=== PATIENT | female | born 1945 | race Caucasian/White ===

== ENCOUNTER 2022-06-23 14:51 | Inpatient (IN) | payer MEDICARE, OTHER ==
[~2022-06-23] VITALS: Ht 157.5 cm; Wt 100.2 kg
--- NOTE | 2022-06-23 15:24 | NUR ---
Dr Yuan seen and examined the Pt.
[2022-06-23] MEDS ORDERED: FAMOTIDINE. 20 MG/2 ML VIAL IV ONE ×2 (15:30→16:14)
[2022-06-23 16:12] LABS: HEMATOCRIT 35.9 % (31.2-41.9); MEAN CORPUSCULAR HEMOGLOBIN 25.9 uug (24.7-32.8); MEAN CORPUSCULAR VOLUME 80.8 fL (75.5-95.3); PLATELET COUNT (AUTO) 292 K/uL (179-408)
[2022-06-23 16:19] LABS: CARBON DIOXIDE 27 mmol/L (21-32); CHLORIDE 104 mmol/L (98-107); CREATININE 1.5 mg/dL (0.6-1.3); GLUCOSE 125 mg/dL (74-106); UREA NITROGEN, BLOOD 14 mg/dL (7-18)
[2022-06-23 16:27] LABS: ALANINE AMINOTRANSFERASE 16 U/L (14-59); ALKALINE PHOSPHATASE 78 U/L (50-136); ASPARTATE AMINOTRANSFERASE 15 U/L (15-37); BILIRUBIN,DIRECT 0.1 mg/dL (0.0-0.2); BILIRUBIN,TOTAL 0.3 mg/dL (0.2-1.0); LIPASE 62 U/L (73-393); TOTAL PROTEIN, SERUM 7.2 g/dL (6.4-8.2)
[2022-06-23] MEDS ORDERED: LORAZEPAM 0.5 MG TABLET PO ONE (16:45)
[2022-06-23] MEDS ORDERED: BUSP10TA3 PO (17:13)
[2022-06-23] MEDS ORDERED: MELA3TAB41 PO (17:13)
[2022-06-23] MEDS ORDERED: DOCU100C36 PO (17:13)
[2022-06-23] MEDS ORDERED: TEMA7.5C2 PO (17:13)
[2022-06-23] MEDS ORDERED: CLOT15CR27 TP (17:13)
[2022-06-23] MEDS ORDERED: PSYL3.4P6 PO (17:13)
[2022-06-23] MEDS ORDERED: ONDA-104 PO (17:13)
[2022-06-23] MEDS ORDERED: SIME80TA15 PO (17:13)
[2022-06-23] MEDS ORDERED: HYDR-501 PO (17:13)
[2022-06-23] MEDS ORDERED: POLY17PO4 PO (17:13)
[2022-06-23] MEDS ORDERED: PANT40TA49 PO (17:13)
[2022-06-23] MEDS ORDERED: LUBI24CA5 PO (17:13)
[2022-06-23] MEDS ORDERED: BISA10SU61 RC (17:13)
[2022-06-23] MEDS ORDERED: OXYC-128 PO (17:13)
[2022-06-23] MEDS ORDERED: MAGN400O6 PO (17:13)
[2022-06-23] MEDS ORDERED: LEVO50TA PO (17:13)
[2022-06-23] MEDS ORDERED: GABA-532 PO (17:13)
[2022-06-23] MEDS ORDERED: NA P133E RC (17:13)
[2022-06-23] MEDS ORDERED: CARI350T (17:13)
[2022-06-23] MEDS ORDERED: DIPH25TA62 PO (17:13)
[2022-06-23] MEDS ORDERED: AMLO5TAB4 PO (17:13)
[2022-06-23] MEDS ORDERED: ACET-2154 PO (17:13)
[2022-06-23] MEDS ORDERED: VITAMIN D3 PO (17:13)
[2022-06-23] MEDS ORDERED: SENN-261 PO (17:13)
[2022-06-23] MEDS ORDERED: QUET300T2 PO (17:13)
[2022-06-23] MEDS ORDERED: QUET100T PO (17:13)
[2022-06-23] MEDS ORDERED: LORA-259 PO (17:13)
[2022-06-23] MEDS ORDERED: BISM525O14 PO (17:13)
[2022-06-23] MEDS ORDERED: LORAZEPAM 1 MG TABLET ONE (17:18)
--- NOTE | 2022-06-23 17:25 | NUR ---
Placed a call to Beena Akers, PET rippler for Pt. Awating call back.
[2022-06-23 17:35] LABS: ACETAMINOPHEN < 2.0 ug/mL (10-30)
--- NOTE | 2022-06-23 18:20 | NUR ---
Spoke to Bianca PARKER, awaiting call back from Luciana Pastor.
--- NOTE | 2022-06-23 18:56 | NUR ---
Spoke to ELENA Patel, ETA 10 min.
[2022-06-23] MEDS ORDERED: ONDANSETRON 4 MG/2 ML VIAL ONE (19:19)
[2022-06-23] MEDS ORDERED: HYDROMORPHONE 1 MG/1 ML DISP.SYRIN ONE (19:19)
[2022-06-23] MEDS ORDERED: ONDANSETRON 4 MG/2 ML VIAL IV ONE (19:30)
[2022-06-23] MEDS ORDERED: HYDROMORPHONE 1 MG/1 ML DISP.SYRIN IV ONE (19:30)
--- NOTE | 2022-06-23 19:30 | NUR ---
Luciana Villatoro STOCK BLENDER at bedside for psych eval.
[2022-06-23] MEDS ORDERED: MAG HYDROX/AL HYDROX/SIMETH 30 ML LIQUID UDC ONE (19:54)
[2022-06-23] MEDS ORDERED: ONDANSETRON 4 MG/2 ML VIAL IM ONE (20:00)
[2022-06-23] MEDS ORDERED: HYDROMORPHONE 1 MG/1 ML DISP.SYRIN IM ONE (20:00)
[2022-06-23] MEDS ORDERED: MAG HYDROX/AL HYDROX/SIMETH 30 ML LIQUID UDC PO ONE (21:00)
--- NOTE | 2022-06-23 21:27 | NUR ---
Report given to Destiny ELIZALDE [facility].
[2022-06-23] MEDS ORDERED: diphenhydrAMINE 50 MG CAPSULE ONE (21:40)
[2022-06-23] MEDS ORDERED: diphenhydrAMINE 50 MG/1 ML VIAL IV ONE (21:45)
[2022-06-23] MEDS ORDERED: diphenhydrAMINE 50 MG CAPSULE PO ONE (21:45)
[2022-06-23] MEDS ORDERED: MAGNESIUM HYDROXIDE 30 ML LIQUID UDC PO PRN (22:15)
[2022-06-23] MEDS ORDERED: CLONAZEPAM 0.5 MG TABLET PO PRN (22:15)
[2022-06-23 22:51] VITALS: BP 153/56
[2022-06-23] MEDS: ACETAMINOPHEN 325 MG TABLET PO PRN (23:56)
[2022-06-23] MEDS: TEMAZEPAM 7.5 MG CAPSULE PO PRN (23:56)
[2022-06-24] MEDS: MAG HYDROX/AL HYDROX/SIMETH 30 ML LIQUID UDC PO PRN (02:53)
--- NOTE | 2022-06-24 03:19 | NUR ---
Admission Note: Received 77 y/o female patient in the hallway brought in via ER staff on tremaine @ 2215 hours. Patient is on a 5150 hold. Per hold information, pt is gravely disabled. Patient resides at [facility]. Staff there stated she constantly complained of pain that wasn't there, is a med-seeker, and non-compliant with care. Pt has a history of hospitalization and was recently discharged form [facility]. Pt is dx with Schizophrenia, Anxiety, MDD. Upon face to face assessment patient is AOx2, yet has moments of delusion, is a hypochondriac, needy, attention seeking, and complained of non-specific/generalized pain. Pt is obese, non-ambulatory/bedfast, and incontinent. Patient was given advisement, patient's rights handbook, was explained the rules of the unit, and her personal belongings accounted for. She will be followed by psychiatrist Jose Luis and senior product development scientist Zac.
[2022-06-24] MEDS ORDERED: LORAZEPAM 2 MG/1 ML VIAL IM ONE (03:45)
[2022-06-24] MEDS ORDERED: OLANZAPINE 10 MG VIAL IM ONE (03:45)
[2022-06-24] MEDS ORDERED: OXYCODONE/APAP 5-325 MG TABLET PO ONE (04:00)
--- NOTE | 2022-06-24 04:35 | NUR ---
Gave pt Klonopin 0.5mg po prn for increased anxiety, and Temazepam 7.5mg for insomnia per pt request. Anxiety and insomnia wasn't corrected per reassessment.
--- NOTE | 2022-06-24 04:47 | NUR ---
Contacted Dr. Moore for medication reconciliation. Patient continued to complain of non-specific generalized pain in major joints, behind the neck, lower back, esophagus, lower legs, etc. Pt was yelling and restless in bed. Per MD Moore orders, Percocet 5-325mg was cleared for x1 now, and home meds. Although this medication was cleared to give, we held giving this d/t Zyprexa 5mg IM and Ativan 2mg IM order via MD Amaya.
--- NOTE | 2022-06-24 05:04 | NUR ---
Chemical restraints given per orders via MD Amaya. Zyprexa 5mg IM, and Ativan 2 mg IM. Injection was given into (R) buttocks. Pt tolerated procedure well. VS taken before and after injections. Educated pt on each medication. Pt verbalized understanding. Will continue to monitor.
[2022-06-24 07:30] VITALS: BP 121/59
[2022-06-24] MEDS: LORAZEPAM 1 MG TABLET PO PRN ×2 (10:10→22:57)
[2022-06-24] MEDS: ACETAMINOPHEN 325 MG TABLET PO PRN (10:11)
[2022-06-24] MEDS: busPIRone 10 MG TABLET PO SCH (12:23)
[2022-06-24] MEDS ORDERED: BISACODYL 10 MG SUPP.RECT RC PRN (13:30)
[2022-06-24] MEDS ORDERED: FLEET ENEMA 133 ML BOTTLE RC PRN (13:30)
[2022-06-24] MEDS ORDERED: BISMUTH SUBSALICYLATE 525 MG PO PRN (13:30)
[2022-06-24] MEDS ORDERED: MAGNESIUM HYDROXIDE 30 ML LIQUID UDC PO PRN (13:30)
[2022-06-24] MEDS ORDERED: ACETAMINOPHEN 325 MG TABLET-SA PATIENTS-PAIN ONLY PO PRN ×2 (13:30)
--- NOTE | 2022-06-24 13:31 | NUR ---
Received patient in bed yelling and screaming at all time,, patient state that ' can you transfer me to other hospital i need to have endoscopy done".patient is confused and disorient poor insight and paranoia delusional ,PRN Ativan give as ordered not effected ,Aviva BORING MILL OPERATOR made aware no new order made.will continue close monitoring.
[2022-06-24 16:00] VITALS: BP 127/67
--- NOTE | 2022-06-24 16:02 | NUR ---
SW Initial Discharge Note: Pt currently resides at [facility] [address] [place] [address] ([phone]). SW will continue to be in contact with [facility] to ensure a safe and proper SW will continue to work with pt, family and MD to ensure a safe and proper discharge plan.
[2022-06-24] MEDS: DOCUSATE SODIUM 100 MG CAPSULE PO SCH (16:15)
[2022-06-24] MEDS: PANTOPRAZOLE SODIUM 40 MG TABLET.DR PO SCH (16:15)
[2022-06-24] MEDS: MIRALAX 17 GM POWD.PACK PO SCH (16:15)
[2022-06-24] MEDS: CARISOPRODOL 350 MG TABLET PO SCH (16:15)
[2022-06-24] MEDS: GABAPENTIN 100 MG CAPSULE PO SCH (16:16)
[2022-06-24] MEDS: PSYLLIUM SEED PACKET PO SCH (16:21)
[2022-06-24] MEDS ORDERED: LUBIPROSTONE PO SCH (17:00)
[2022-06-24] MEDS ORDERED: [UNRECOGNIZED DRUG - OTHER] PO SCH (17:00)
[2022-06-24 22:28] VITALS: BP 146/66
[2022-06-24] MEDS: SENNOSIDES 1 TABLET PO SCH (22:31)
[2022-06-24] MEDS: OXYCODONE/APAP 5-325 MG TABLET PO PRN (22:31)
[2022-06-24] MEDS: ESCITALOPRAM OXALATE 10 MG TABLET PO SCH (22:31)
[2022-06-24] MEDS: CLOTRIMAZOLE 1% CREAM 30 GM TUBE TP SCH ×2 (22:32→22:43)
[2022-06-25] MEDS: ACETAMINOPHEN 325 MG TABLET PO PRN ×2 (04:34→12:17)
[2022-06-25] MEDS: OXYCODONE/APAP 5-325 MG TABLET PO PRN ×3 (06:56→23:41)
[2022-06-25] MEDS: PANTOPRAZOLE SODIUM 40 MG TABLET.DR PO SCH ×2 (06:56→16:35)
[2022-06-25] MEDS: LEVOTHYROXINE SODIUM 50 MCG TABLET PO SCH (06:57)
[2022-06-25 07:35] VITALS: BP 135/55
[2022-06-25] MEDS: CYANOCOBALAMIN 1,000 MCG TABLET PO SCH (08:40)
[2022-06-25] MEDS: AMLODIPINE 5 MG TABLET PO SCH (08:41)
[2022-06-25] MEDS: MIRALAX 17 GM POWD.PACK PO SCH ×2 (08:41→16:36)
[2022-06-25] MEDS: busPIRone 10 MG TABLET PO SCH (08:41)
[2022-06-25] MEDS: CARISOPRODOL 350 MG TABLET PO SCH ×2 (08:41→16:35)
[2022-06-25] MEDS: GABAPENTIN 100 MG CAPSULE PO SCH ×3 (08:41→16:35)
[2022-06-25] MEDS: DOCUSATE SODIUM 100 MG CAPSULE PO SCH ×2 (08:41→16:36)
[2022-06-25] MEDS: PSYLLIUM SEED PACKET PO SCH ×2 (08:42→16:36)
[2022-06-25] MEDS: LORAZEPAM 1 MG TABLET PO PRN ×2 (09:21→22:05)
[2022-06-25] MEDS: MAG HYDROX/AL HYDROX/SIMETH 30 ML LIQUID UDC PO PRN ×2 (10:07→21:35)
[2022-06-25] MEDS ORDERED: LORAZEPAM 2 MG/1 ML VIAL IM ONE (14:15)
--- NOTE | 2022-06-25 15:02 | NUR ---
Patient became agitated, yelling, combative, striking out at staff, accusatory. Psychiatrist ordered Ativan 1 mg IM, three people were necessary to administer medication, no force needed. Active listening provided. Fall and safety precautions implemented.
--- NOTE | 2022-06-25 15:30 | NUR ---
Received patient sleeping in her room. Patient is A/O X 3 to person, place. Patient is demanding, needy, anxious and agitated most of time, yelling, screaming, attention seeker. Patient is fixated on pain medications. Patient states "I don't belong here. I need more care in the medical floor. I'm not a mental person. I'm just depressed." Patient is accusatory "I'll norm whoever put me here". Patient is given Mylanta 30 ml at 10:07 for upset stomach. Patient is given Tylenol 650 mg at 12:17 for headache and lower back pain. Patient is given Percocet 5-325 for generalized pain rated 10 on the scale of 1 to 10, will be monitored for effectiveness. Pt. requires more than minimal assistance with ADL, bed confined, incontinent. Active listening provided. Fall and safety precautions implemented.
[2022-06-25 16:22] VITALS: BP 116/58
[2022-06-25 20:58] VITALS: BP 105/60
[2022-06-25] MEDS: ESCITALOPRAM OXALATE 10 MG TABLET PO SCH (21:34)
[2022-06-25] MEDS: SENNOSIDES 1 TABLET PO SCH (21:34)
[2022-06-25] MEDS: TEMAZEPAM 7.5 MG CAPSULE PO PRN (21:35)
[2022-06-25] MEDS: CLOTRIMAZOLE 1% CREAM 30 GM TUBE TP SCH (21:35)
[2022-06-26] MEDS: LEVOTHYROXINE SODIUM 50 MCG TABLET PO SCH (06:56)
[2022-06-26] MEDS: PANTOPRAZOLE SODIUM 40 MG TABLET.DR PO SCH ×2 (06:56→17:00)
[2022-06-26] MEDS: OXYCODONE/APAP 5-325 MG TABLET PO PRN ×3 (06:57→23:04)
[2022-06-26 07:50] VITALS: BP 151/88
[2022-06-26] MEDS: busPIRone 10 MG TABLET PO SCH (08:27)
[2022-06-26] MEDS: CARISOPRODOL 350 MG TABLET PO SCH ×2 (08:29→17:00)
[2022-06-26] MEDS: CYANOCOBALAMIN 1,000 MCG TABLET PO SCH (08:29)
[2022-06-26] MEDS: GABAPENTIN 100 MG CAPSULE PO SCH ×3 (08:29→17:00)
[2022-06-26] MEDS: AMLODIPINE 5 MG TABLET PO SCH (08:29)
[2022-06-26] MEDS: DOCUSATE SODIUM 100 MG CAPSULE PO SCH ×2 (08:29→17:00)
[2022-06-26] MEDS: MIRALAX 17 GM POWD.PACK PO SCH ×2 (08:30→17:00)
[2022-06-26] MEDS: CLOTRIMAZOLE 1% CREAM 30 GM TUBE TP SCH ×2 (08:55→21:58)
[2022-06-26] MEDS: PSYLLIUM SEED PACKET PO SCH ×2 (09:00→17:00)
--- NOTE | 2022-06-26 10:00 | NUR ---
Received patient lying in her bed in her room. Received report from abran Hightower RN at 0900. Patient is A/O X 3 to person, place. Patient is demanding, needy, anxious and agitated, yelling for "nurse", attention seeking. Pt complaining of "more than 10/10" arthritis pain and requested percocet, but her last one was given at 0700. Gave pt Tylenol instead and Ativan per pt request and MD order. Showed pt how to use the phone to dial out. Pt spoke to her sister in law and her .
--- NOTE | 2022-06-26 10:05 | NUR ---
Pt refused Metamucil because she is having BMs.
[2022-06-26] MEDS: LORAZEPAM 1 MG TABLET PO PRN ×2 (10:39→23:04)
[2022-06-26] MEDS: ACETAMINOPHEN 325 MG TABLET PO PRN (10:39)
--- NOTE | 2022-06-26 12:29 | NUR ---
Spoke with Italo from pharmacy re a home med for this pt called Amitiza for constipation. Pt states that she doesn't use it and doesn't need it, that she uses miralax for her constipation. I let Italo know.
--- NOTE | 2022-06-26 15:42 | NUR ---
Pt able to transfer to isabela chair with 2 person assist. Pt rolled to the activity room to watch tv. Pt states "I've been in bed for 3 years."
[2022-06-26] MEDS ORDERED: PROTEIN SUPPLEMENT (PROSTAT) 30 ML LIQUID PO SCH (16:00)
[2022-06-26] MEDS: MAG HYDROX/AL HYDROX/SIMETH 30 ML LIQUID UDC PO PRN ×2 (16:07→23:03)
[2022-06-26 16:14] VITALS: BP 127/54
[2022-06-26] MEDS: GLUCERNA SHAKE 237 ML CAN PO SCH (18:00)
--- NOTE | 2022-06-26 19:22 | NUR ---
Endorsed pt to night nurseKatja. Pt in isabela chair in activity room, watching tv.
[2022-06-26] MEDS: TEMAZEPAM 7.5 MG CAPSULE PO PRN (21:58)
[2022-06-26] MEDS: SENNOSIDES 1 TABLET PO SCH (21:58)
[2022-06-26] MEDS: ESCITALOPRAM OXALATE 10 MG TABLET PO SCH (21:58)
--- NOTE | 2022-06-27 02:16 | NUR ---
SHIFT NOTE; RECEIVED NOTE FROM AM NURSE ISAAC PT IS ALERT AND ORIENTED X3 PT WAS OUT BED IN TV ROOM WATCHING TV. PT REQUESTED TO BE RETURNED TO BED PUSHED BROOKS CHAIR IN PATIENT ROOM. PT ASSISTED WITH STANDING AND AFTERWARDS PT GOT BACK IN BED WITH HEALTHCARE PROFESSIONALS OBSERVING PT NO SIGNS OF FALL NOTED..PT CLEAN AND DRY CREAM APPLIED ORDERED. PT TOLERATED WELL NO SIGNS OF DISTRESS NOTED. PT GIVEN EVENING MEDICATION ORDERED ALONG WITH PRN PAIN MEDICATION NO SIGNS OF ADVERSE REACTION NOTED. PT MONITORED AFTER AN HOUR SLEEPING BUT EASY TO AROUSED. WILL ENDORSE TO AM NURSE AND CONTINUE TO MONITOR ORDERED OBSERVE FOR FALLS AND SAFETY
[2022-06-27] MEDS: PANTOPRAZOLE SODIUM 40 MG TABLET.DR PO SCH ×2 (07:26→16:01)
[2022-06-27] MEDS: LEVOTHYROXINE SODIUM 50 MCG TABLET PO SCH (07:26)
[2022-06-27 07:45] VITALS: BP 143/63
[2022-06-27] MEDS: GLUCERNA SHAKE 237 ML CAN PO SCH ×3 (08:00→16:02)
[2022-06-27] MEDS: GABAPENTIN 100 MG CAPSULE PO SCH ×3 (08:45→16:01)
[2022-06-27] MEDS: busPIRone 10 MG TABLET PO SCH (08:46)
[2022-06-27] MEDS: LORAZEPAM 1 MG TABLET PO PRN (08:46)
[2022-06-27] MEDS: CYANOCOBALAMIN 1,000 MCG TABLET PO SCH (08:46)
[2022-06-27] MEDS: DOCUSATE SODIUM 100 MG CAPSULE PO SCH ×2 (08:46→16:01)
[2022-06-27] MEDS: CARISOPRODOL 350 MG TABLET PO SCH ×2 (08:46→16:01)
[2022-06-27] MEDS: OXYCODONE/APAP 5-325 MG TABLET PO PRN ×2 (08:46→22:31)
[2022-06-27] MEDS: CLOTRIMAZOLE 1% CREAM 30 GM TUBE TP SCH ×2 (08:47→21:00)
[2022-06-27] MEDS: AMLODIPINE 5 MG TABLET PO SCH (08:47)
[2022-06-27] MEDS: PSYLLIUM SEED PACKET PO SCH ×2 (08:47→16:02)
[2022-06-27] MEDS: MIRALAX 17 GM POWD.PACK PO SCH ×2 (08:47→16:03)
[2022-06-27] MEDS ORDERED: LORAZEPAM 1 MG TABLET PO PRN (10:15)
[2022-06-27] MEDS: MAG HYDROX/AL HYDROX/SIMETH 30 ML LIQUID UDC PO PRN ×2 (11:43→20:59)
[2022-06-27] MEDS: ACETAMINOPHEN 325 MG TABLET PO PRN (12:32)
--- NOTE | 2022-06-27 14:56 | NUR ---
GPS: Nursing Notes: Mood Disturbance: Depression: Patient is awake and responding to her name, depressed mood and anxious affect, poor impulse control, overly demanding at times, needy, attention seeking, unable to formulate a viable plan for self care, needs assistance with ADL's, unable to ambulate, unkempt appearance, gets easily irritable when redirected, continue to monitor for safety, continue with treatment plan.
[2022-06-27] MEDS: ONDANSETRON HCL 4 MG TABLET PO PRN (15:14)
[2022-06-27] MEDS: BISMUTH SUBSALICYLATE 262 MG/15 ML UDC PO PRN (15:15)
[2022-06-27] MEDS: LORAZEPAM 0.5 MG TABLET PO PRN ×2 (15:20→21:27)
[2022-06-27 15:48] VITALS: BP 143/60
[2022-06-27] MEDS: SENNOSIDES 1 TABLET PO SCH (21:00)
--- NOTE | 2022-06-27 21:00 | NUR ---
Patient is still needy and attention seeking. Medication Seeker. Must set boundaries. Re-eduation needed per shift. Pt complained of stomach upset. Gave Mag-Al Plus for excess antiacid relief.
[2022-06-27 21:01] VITALS: BP 150/66
[2022-06-27] MEDS: ESCITALOPRAM OXALATE 10 MG TABLET PO SCH (21:27)
--- NOTE | 2022-06-27 21:29 | NUR ---
Patient refused Senokot x1 tablet @ 2100 hours. After re-educating on the importance f the drug, pt stated she is having loose BM, and requested to hold from taking it.
[2022-06-27] MEDS: TEMAZEPAM 7.5 MG CAPSULE PO PRN (22:30)
--- NOTE | 2022-06-27 22:32 | NUR ---
Patient stated she is having trouble sleeping at night d/t discomfort and pain. Stated her sleeping pill doesn't work. Gave Temazepam and Percocet for insomnia and pain management. Will continue to monitor.
[2022-06-28] MEDS: ACETAMINOPHEN 325 MG TABLET PO PRN ×2 (03:07→15:28)
[2022-06-28] MEDS: REMEDY ESSENTIAL ZINC PASTE 113 GM TOP PRN ×2 (04:57→10:57)
[2022-06-28] MEDS: BISMUTH SUBSALICYLATE 262 MG/15 ML UDC PO PRN ×3 (04:57→22:26)
--- NOTE | 2022-06-28 05:28 | NUR ---
Patient complained of generalized pain in various areas of her body 04/04. Patient denies being addicted to her pain medications and is defensive when being re-educated on the importance of being careful not to become drug dependant/reliant when it is not truly necessary. Patient is manipulative and medication and attention seeking. Patient requested for another Percocet and Ativan.
--- NOTE | 2022-06-28 05:32 | NUR ---
Gave patient [place] Bismuth for gastric upset and diarrhea management. Cleaned and changed patient's perineal area for loose BM and urine, three times this shift. Will continue to monitor.
[2022-06-28] MEDS: LORAZEPAM 0.5 MG TABLET PO PRN ×2 (05:34→13:25)
[2022-06-28] MEDS: OXYCODONE/APAP 5-325 MG TABLET PO PRN ×3 (05:36→22:12)
[2022-06-28] MEDS: PANTOPRAZOLE SODIUM 40 MG TABLET.DR PO SCH ×2 (05:36→18:06)
[2022-06-28] MEDS: LEVOTHYROXINE SODIUM 50 MCG TABLET PO SCH (05:36)
--- NOTE | 2022-06-28 05:47 | NUR ---
Patient is requesting a different medication for diarrhea mgt. Will notify day shift nurse during report.
[2022-06-28 08:07] VITALS: BP 133/61
[2022-06-28] MEDS: busPIRone 10 MG TABLET PO SCH (08:46)
[2022-06-28] MEDS: CARISOPRODOL 350 MG TABLET PO SCH ×2 (08:46→18:06)
[2022-06-28] MEDS: GABAPENTIN 100 MG CAPSULE PO SCH ×3 (08:46→18:06)
[2022-06-28] MEDS: DOCUSATE SODIUM 100 MG CAPSULE PO SCH ×2 (08:47→17:00)
[2022-06-28] MEDS: AMLODIPINE 5 MG TABLET PO SCH (08:47)
[2022-06-28] MEDS: CYANOCOBALAMIN 1,000 MCG TABLET PO SCH (08:47)
[2022-06-28] MEDS: GLUCERNA SHAKE 237 ML CAN PO SCH ×3 (08:47→17:00)
[2022-06-28] MEDS: MIRALAX 17 GM POWD.PACK PO SCH ×2 (08:48→17:00)
[2022-06-28] MEDS: CLOTRIMAZOLE 1% CREAM 30 GM TUBE TP SCH ×2 (08:48→21:00)
[2022-06-28] MEDS: PSYLLIUM SEED PACKET PO SCH ×2 (08:48→17:00)
--- NOTE | 2022-06-28 10:09 | NUR ---
Firearms Report: Deep Submergence Vehicle Crewmember completed and submitted a [employer] firearms report for 5150 grave disability certifications. A copy of report has been placed in patient chart.
--- NOTE | 2022-06-28 14:00 | NUR ---
GPS: Nursing Notes: Mood Disturbance: Depression: Patient is awake and responding to her name, compliant with her medications, argumentative, depressed mood and anxious affect, poor impulse control, overly demanding, needy, gets easily irritable when her demands are not met immediately, stated "I am going to norm Alfred Armenta.. I need a good reconciliation analyst..", unable to formulate a viable plan for self care, continue to monitor for safety, needs assistance with ADL's, continue with treatment plan.
[2022-06-28 15:20] VITALS: BP 174/81
[2022-06-28] MEDS: MAG HYDROX/AL HYDROX/SIMETH 30 ML LIQUID UDC PO PRN (15:28)
[2022-06-28 19:53] VITALS: BP 122/50
[2022-06-28] MEDS: SENNOSIDES 1 TABLET PO SCH (21:00)
[2022-06-28] MEDS: busPIRone 5 MG TABLET PO SCH (22:04)
[2022-06-28] MEDS: LORAZEPAM 1 MG TABLET PO PRN (22:04)
[2022-06-28] MEDS: ESCITALOPRAM OXALATE 10 MG TABLET PO SCH (22:05)
[2022-06-28] MEDS: TEMAZEPAM 7.5 MG CAPSULE PO PRN (22:05)
[2022-06-29] MEDS: PANTOPRAZOLE SODIUM 40 MG TABLET.DR PO SCH ×2 (06:05→17:50)
[2022-06-29] MEDS: LEVOTHYROXINE SODIUM 50 MCG TABLET PO SCH (06:05)
[2022-06-29] MEDS: OXYCODONE/APAP 5-325 MG TABLET PO PRN ×3 (06:06→20:00)
[2022-06-29] MEDS: LORAZEPAM 1 MG TABLET PO PRN ×2 (06:38→22:58)
--- NOTE | 2022-06-29 07:26 | NUR ---
GPS: SHIFT NOTE:RECEIVED PT IN THE DINING AREA WATCHING TV REQUESTED TO COME TO ROOM GO TO ROOM BY 2300; PT REQUESTED MEDICATION FOR PAIN AND UPSET STOMACH. NO MEDICATION FOR STOOL PT HAVING LOOSE STOOL. MEDICATION HELD. PT IS CALM AND COOPERATIVE. PT CHANGED TWICE DURING THE SHIFT ALSO HAS LOOSE STOOL. WILL ENDORSE TO AM NURSE.
[2022-06-29 07:30] VITALS: BP 120/57
[2022-06-29] MEDS: GLUCERNA SHAKE 237 ML CAN PO SCH ×3 (08:00→17:49)
[2022-06-29] MEDS: PSYLLIUM SEED PACKET PO SCH ×2 (09:00→17:00)
[2022-06-29] MEDS: MIRALAX 17 GM POWD.PACK PO SCH ×2 (09:00→17:00)
[2022-06-29] MEDS: DOCUSATE SODIUM 100 MG CAPSULE PO SCH ×2 (09:00→17:00)
[2022-06-29] MEDS: CYANOCOBALAMIN 1,000 MCG TABLET PO SCH (09:43)
[2022-06-29] MEDS: CARISOPRODOL 350 MG TABLET PO SCH ×2 (09:43→17:50)
[2022-06-29] MEDS: GABAPENTIN 100 MG CAPSULE PO SCH ×3 (09:43→17:49)
[2022-06-29] MEDS: busPIRone 5 MG TABLET PO SCH ×3 (09:43→17:49)
[2022-06-29] MEDS: AMLODIPINE 5 MG TABLET PO SCH (09:44)
[2022-06-29] MEDS: CLOTRIMAZOLE 1% CREAM 30 GM TUBE TP SCH ×2 (09:44→21:06)
[2022-06-29] MEDS: MAG HYDROX/AL HYDROX/SIMETH 30 ML LIQUID UDC PO PRN (13:49)
[2022-06-29] MEDS: SIMETHICONE 80 MG TAB.CHEW PO PRN (13:49)
[2022-06-29] MEDS: ACETAMINOPHEN 325 MG TABLET PO PRN (13:49)
--- NOTE | 2022-06-29 14:31 | NUR ---
GPS; SHIFT NOTE: PT IS STILL IN BED ATE LUNCH IN BED PT REQUEST TO COME OUT OF ROOM AND GO TO DINING AREA ASSISTED.PT IS STILL HAVING LOOSE STOOL. PT IS CALM AND COOPERATIVE LESS AGITATED. MEDICATION GIVEN FOR GAS AND OTHER MEDICATION GIVEN NO SIGNS OF ADVERSE REACTION FROM MEDICATION WILL CONTINUE TO MONITOR FOR FALLS AND SAFETY. WILL ENDORSE TO TO EVENING NURSE.
[2022-06-29 16:00] VITALS: BP 145/49
[2022-06-29 20:04] VITALS: BP 123/63
[2022-06-29] MEDS: SENNOSIDES 1 TABLET PO SCH (21:05)
[2022-06-29] MEDS: ESCITALOPRAM OXALATE 10 MG TABLET PO SCH (21:05)
[2022-06-30] MEDS: TEMAZEPAM 7.5 MG CAPSULE PO PRN (00:01)
[2022-06-30] MEDS: ACETAMINOPHEN 325 MG TABLET PO PRN (00:02)
--- NOTE | 2022-06-30 04:05 | NUR ---
RECEIVED PATIENT IN THE DAYROOM SITTING IN A LELO CHAIR. SHE IS NOTED A/O X 2, ABLE TO VERBALIZED HER FEELINGS. PATIENT IS EASILY IRRITABLE. SHE IS DEMANDING AT TIMES. SHE IS MEDICATION SEEKER. SHE HAS POOR INSIGHT INTO HIS ADMISSION TO [facility]HU AND POOR IMPULSE CONTROL. SHE STATED, "I SHOULD NOT BE HERE. I DON'T BELONG HERE. THIS IS A MISTAKE. i AM JUST SAD BECAUSE MY ONLY SON FEW MONTHS AGO. I DON'T WANT TO . I AM IN PAIN ALL THE TIME". PATIENT IS REASSURED AND REDIRECTED. SHE IS ABLE TO VERBALLY CFS ALL HER NEEDS ARE MET. PO FLUIDS AND SNACKS WERE GIVEN. SHE IS REASSURED FOR HER SAFETY. SAFETY AND FALL PRECAUTIONS ARE IN PLACE. V/S STABLE WILL CONTINUE TO MONITOR.
[2022-06-30] MEDS: OXYCODONE/APAP 5-325 MG TABLET PO PRN ×3 (05:26→23:52)
[2022-06-30] MEDS: PANTOPRAZOLE SODIUM 40 MG TABLET.DR PO SCH ×2 (06:36→16:37)
[2022-06-30] MEDS: LEVOTHYROXINE SODIUM 50 MCG TABLET PO SCH (06:36)
[2022-06-30] MEDS: LORAZEPAM 1 MG TABLET PO PRN ×2 (07:15→15:21)
[2022-06-30 07:30] VITALS: BP 145/56
[2022-06-30] MEDS: GLUCERNA SHAKE 237 ML CAN PO SCH ×3 (08:59→17:12)
[2022-06-30] MEDS: busPIRone 5 MG TABLET PO SCH ×3 (09:17→16:37)
[2022-06-30] MEDS: GABAPENTIN 100 MG CAPSULE PO SCH ×3 (09:17→16:37)
[2022-06-30] MEDS: DOCUSATE SODIUM 100 MG CAPSULE PO SCH ×2 (09:17→16:37)
[2022-06-30] MEDS: CARISOPRODOL 350 MG TABLET PO SCH ×2 (09:17→16:37)
[2022-06-30] MEDS: CYANOCOBALAMIN 1,000 MCG TABLET PO SCH (09:17)
[2022-06-30] MEDS: AMLODIPINE 5 MG TABLET PO SCH (09:17)
[2022-06-30] MEDS: CLOTRIMAZOLE 1% CREAM 30 GM TUBE TP SCH ×2 (09:18→20:58)
[2022-06-30] MEDS: MIRALAX 17 GM POWD.PACK PO SCH ×2 (09:18→16:38)
[2022-06-30] MEDS: PSYLLIUM SEED PACKET PO SCH ×2 (09:20→16:39)
--- NOTE | 2022-06-30 09:51 | NUR ---
Patient had court hearing, associate juvenile court judge Hallie decided giving 14 Day probable cause for DTS and GD.
[2022-06-30 16:00] VITALS: BP 150/54
--- NOTE | 2022-06-30 18:25 | NUR ---
0730-REC'D PATIENT IN BED, AWAKE, ALERT, ABLE TO VERBALIZE HER NEEDS. DENIES ANY PAIN. OFFERED ORAL FLUIDS JULIA. AND TAKEN WELL. WILL CONT. TO MONITOR. 0900-SCHEDULED/DUE MEDICATION ADMINISTERED WITH NO ASE, ORAL FLUIDS TAKEN WELL. 1500-PATIENT OOB, ON BROOKS-CHAIR PARTICIPATING IN PLANNED ACTIVITIES WITH OTHER PATIENTS IN THE UNIT AND STAFF. ASSIST NEEDED DURING SHIFT, NO LUCIAN, SEEN BY DISTANCE EDUCATION TEACHER CROW Guerrero WITH ORDERS FOR UA; PATIENT REFUSES TO GO BACK TO BED AND/OR TO BE STRAIGHT CATH TO OBTAIN URINE SAMPLE. GOOD PERINEAL CARE PROVIDED, JANIE ANY BLADDER DISCOMFORT, NO HEMATURIA, URINE ODORLESS. ALL NEEDS ATTENDED WELL AND MET, ENDORSED TO INCOMING NOC RELIEVING NURSE.
[2022-06-30 20:04] VITALS: BP 108/60
--- NOTE | 2022-06-30 20:30 | NUR ---
RECEIVED PATIENT IN THE DAYROOM SITTING IN A LELO CHAIR. SHE IS NOTED A/O X 2, ABLE TO VERBALIZED HER FEELINGS. SHE IS NOTED CALM AND PLEASANT UPON APPROACHED. SHE DENIED PAIN AT THIS TIME. SHE IS ABLE TO VERBALLY CFS. ALL HER NEEDS ARE MET. PO FLUIDS AND SNACKS WERE GIVEN. SHE IS REASSURED FOR HER SAFETY. SAFETY AND FALL PRECAUTIONS ARE IN PLACE. V/S STABLE WILL CONTINUE TO MONITOR.
[2022-06-30] MEDS: ESCITALOPRAM OXALATE 10 MG TABLET PO SCH (20:47)
[2022-06-30] MEDS: SENNOSIDES 1 TABLET PO SCH (20:52)
[2022-06-30] MEDS: ONDANSETRON HCL 4 MG TABLET PO PRN (22:37)
[2022-07-01] MEDS: TEMAZEPAM 7.5 MG CAPSULE PO PRN (00:31)
[2022-07-01] MEDS: LORAZEPAM 1 MG TABLET PO PRN ×2 (01:22→09:12)
[2022-07-01] MEDS: LEVOTHYROXINE SODIUM 50 MCG TABLET PO SCH (06:28)
[2022-07-01] MEDS: PANTOPRAZOLE SODIUM 40 MG TABLET.DR PO SCH ×2 (06:28→16:54)
[2022-07-01 07:19] LABS: MEAN CORPUSCULAR HEMOGLOBIN 26.1 uug (24.7-32.8); MEAN CORPUSCULAR VOLUME 81.3 fL (75.5-95.3); PLATELET COUNT (AUTO) 309 K/uL (179-408)
[2022-07-01 07:30] VITALS: BP 124/49
[2022-07-01 07:42] LABS: BILIRUBIN,TOTAL 0.3 mg/dL (0.2-1.0); CREATININE 1.3 mg/dL (0.6-1.3); MAGNESIUM 2.3 mg/dL (1.8-2.4); POTASSIUM 4.2 mmol/L (3.5-5.1); TOTAL PROTEIN, SERUM 7.5 g/dL (6.4-8.2)
[2022-07-01] MEDS: busPIRone 5 MG TABLET PO SCH ×3 (08:29→16:54)
[2022-07-01] MEDS: CARISOPRODOL 350 MG TABLET PO SCH ×2 (08:29→16:54)
[2022-07-01] MEDS: GABAPENTIN 100 MG CAPSULE PO SCH ×3 (08:29→16:54)
[2022-07-01] MEDS: CYANOCOBALAMIN 1,000 MCG TABLET PO SCH (08:29)
[2022-07-01] MEDS: DOCUSATE SODIUM 100 MG CAPSULE PO SCH ×2 (08:29→16:54)
[2022-07-01] MEDS: AMLODIPINE 5 MG TABLET PO SCH (08:30)
[2022-07-01] MEDS: MIRALAX 17 GM POWD.PACK PO SCH ×2 (08:30→16:54)
[2022-07-01] MEDS: GLUCERNA SHAKE 237 ML CAN PO SCH ×2 (08:33→16:55)
[2022-07-01] MEDS: PSYLLIUM SEED PACKET PO SCH ×2 (08:34→16:56)
[2022-07-01] MEDS: CLOTRIMAZOLE 1% CREAM 30 GM TUBE TP SCH ×2 (08:36→21:09)
[2022-07-01] MEDS: OXYCODONE/APAP 5-325 MG TABLET PO PRN ×2 (11:29→21:08)
--- NOTE | 2022-07-01 15:10 | NUR ---
Received Patient is awake and responding to her name, depressed mood and anxious affect, poor impulse control, overly demanding at times, needy, attention and med.seeking , get patient up to Louann-chair to Tv room, ,patient interaction well with other peers,will continue close monitoring.
[2022-07-01 16:48] VITALS: BP 144/53
[2022-07-01 20:33] VITALS: BP 142/61
[2022-07-01] MEDS: SENNOSIDES 1 TABLET PO SCH (21:07)
[2022-07-01] MEDS: ESCITALOPRAM OXALATE 10 MG TABLET PO SCH (21:07)
[2022-07-01] MEDS: DIAZEPAM 5 MG TABLET PO PRN (23:45)
[2022-07-01] MEDS: BISMUTH SUBSALICYLATE 262 MG/15 ML UDC PO PRN (23:45)
[2022-07-02] MEDS: TEMAZEPAM 7.5 MG CAPSULE PO PRN ×2 (00:35→22:45)
--- NOTE | 2022-07-02 03:38 | NUR ---
Pt remains "[id number]" with her prn medications, especially her pain meds. Re-education and establishing boundaries are needed in order to keep patient from having unnecessary anxious outbreaks. Attention seeking and needy at times, pt is overall compliant wit POC.
[2022-07-02] MEDS: PANTOPRAZOLE SODIUM 40 MG TABLET.DR PO SCH ×2 (06:39→16:40)
[2022-07-02] MEDS: LEVOTHYROXINE SODIUM 50 MCG TABLET PO SCH (06:39)
[2022-07-02] MEDS: OXYCODONE/APAP 5-325 MG TABLET PO PRN ×3 (06:41→22:44)
[2022-07-02 08:01] VITALS: BP 151/61
[2022-07-02] MEDS: GABAPENTIN 100 MG CAPSULE PO SCH ×3 (08:31→16:40)
[2022-07-02] MEDS: CARISOPRODOL 350 MG TABLET PO SCH ×2 (08:31→16:40)
[2022-07-02] MEDS: DOCUSATE SODIUM 100 MG CAPSULE PO SCH ×2 (08:31→16:40)
[2022-07-02] MEDS: CYANOCOBALAMIN 1,000 MCG TABLET PO SCH (08:31)
[2022-07-02] MEDS: AMLODIPINE 5 MG TABLET PO SCH (08:31)
[2022-07-02] MEDS: busPIRone 5 MG TABLET PO SCH ×3 (08:31→16:40)
[2022-07-02] MEDS: PSYLLIUM SEED PACKET PO SCH ×2 (08:32→16:40)
[2022-07-02] MEDS: MIRALAX 17 GM POWD.PACK PO SCH ×2 (08:32→16:40)
[2022-07-02] MEDS: GLUCERNA SHAKE 237 ML CAN PO SCH ×2 (08:32→16:40)
[2022-07-02] MEDS: CLOTRIMAZOLE 1% CREAM 30 GM TUBE TP SCH ×2 (08:32→20:32)
[2022-07-02] MEDS: BISMUTH SUBSALICYLATE 262 MG/15 ML UDC PO PRN (10:28)
[2022-07-02] MEDS: DIAZEPAM 5 MG TABLET PO PRN (11:50)
[2022-07-02] MEDS: ACETAMINOPHEN 325 MG TABLET PO PRN (11:50)
--- NOTE | 2022-07-02 13:20 | NUR ---
GPS: Nursing Notes: Mood Disturbance: Depression: Patient is awake and responding to her name, poor impulse control, overly demanding, constantly asking for PRN medications, depressed mood and anxious affect, stated that she is going to norm the facility where she came from, argumentative, needy, redirected during shift, unable to formulate a viable plan for self care, continue to monitor for safety, continue with treatment plan.
[2022-07-02] MEDS: MAG HYDROX/AL HYDROX/SIMETH 30 ML LIQUID UDC PO PRN (15:28)
[2022-07-02 16:10] VITALS: BP 158/56
[2022-07-02] MEDS: REMEDY ESSENTIAL ZINC PASTE 113 GM TOP PRN (16:32)
[2022-07-02 19:49] VITALS: BP 145/61
[2022-07-02] MEDS: SENNOSIDES 1 TABLET PO SCH (20:31)
[2022-07-02] MEDS: ESCITALOPRAM OXALATE 10 MG TABLET PO SCH (20:31)
[2022-07-02] MEDS: diphenhydrAMINE 25 MG CAP PO PRN (22:44)
[2022-07-03] MEDS: DIAZEPAM 5 MG TABLET PO PRN ×2 (01:00→14:23)
--- NOTE | 2022-07-03 03:59 | NUR ---
GPS NOTES: Patient received in [facility] [place], A&0x3. Patient at the beginning of the shift requests for benadryl d/t generalized body itchiness, patient also requesting for stronger pain medications as she is in "alot" of pain as the Percocet is not as effective to address her pain. Called [facility] MD, and was able to get an order for Benadryl, however, MD can't order more medication for her pain at this time and advise to refer in the AM MD as patient is already on PERCOCET. Informed patient of the MD's order. Patient then became upset and states "This DrKendras need to be sued, I have 4 blue leather sorter, this is not right, I'm in a lot of pain and they just let me suffer". Acknowledged patient feelings. Patient is not exhibiting any signs of severe pain, no facial grimacing noted, not crying or rubbing any affected area. Patient also unable to rate the pain when asked. Patient v/s are w/in acceptable parameters. No distress noted. Educated patient the pros and cons of taking too much pain narcotics. She is not accepting the informations at this time. Patient remains needy and making multiple demands to talk to the MD. Patient needs setting limits with her behavior. Patient also asked life underwriter to call Psychiatrist as she was told that she will be prescribed a Seroquel for sleep as the Restoril is not helping her sleep. Informed patient to talk the concern in the AM w/ MD. Patient was given Valium, Benadryl, Restoril and Percocet as prn during this shift. She is sleeping intermittently and asking for multiple requests when awake. All needs met and attended. Frequent rounding for safety in placed.
[2022-07-03] MEDS: BISMUTH SUBSALICYLATE 262 MG/15 ML UDC PO PRN ×2 (05:47→15:18)
[2022-07-03] MEDS: LEVOTHYROXINE SODIUM 50 MCG TABLET PO SCH (06:03)
[2022-07-03] MEDS: PANTOPRAZOLE SODIUM 40 MG TABLET.DR PO SCH ×2 (06:03→16:06)
[2022-07-03] MEDS: ACETAMINOPHEN 325 MG TABLET PO PRN ×3 (06:29→20:34)
[2022-07-03 08:02] VITALS: BP 150/73
[2022-07-03] MEDS: CARISOPRODOL 350 MG TABLET PO SCH ×2 (08:28→16:04)
[2022-07-03] MEDS: AMLODIPINE 5 MG TABLET PO SCH (08:28)
[2022-07-03] MEDS: OXYCODONE/APAP 5-325 MG TABLET PO PRN ×2 (08:28→16:03)
[2022-07-03] MEDS: busPIRone 5 MG TABLET PO SCH ×3 (08:28→16:03)
[2022-07-03] MEDS: PSYLLIUM SEED PACKET PO SCH ×2 (08:29→16:04)
[2022-07-03] MEDS: GABAPENTIN 100 MG CAPSULE PO SCH ×3 (08:29→16:03)
[2022-07-03] MEDS: CYANOCOBALAMIN 1,000 MCG TABLET PO SCH (08:29)
[2022-07-03] MEDS: GLUCERNA SHAKE 237 ML CAN PO SCH ×2 (08:29→16:04)
[2022-07-03] MEDS: DOCUSATE SODIUM 100 MG CAPSULE PO SCH ×2 (08:29→16:04)
[2022-07-03] MEDS: CLOTRIMAZOLE 1% CREAM 30 GM TUBE TP SCH ×2 (08:30→20:35)
[2022-07-03] MEDS: MIRALAX 17 GM POWD.PACK PO SCH ×2 (08:30→16:04)
[2022-07-03] MEDS ORDERED: ESCITALOPRAM OXALATE 10 MG TABLET PO SCH (09:00)
[2022-07-03] MEDS: diphenhydrAMINE 25 MG CAP PO PRN ×2 (14:23→20:34)
[2022-07-03] MEDS: REMEDY ESSENTIAL ZINC PASTE 113 GM TOP PRN ×2 (15:19→23:55)
--- NOTE | 2022-07-03 15:32 | NUR ---
GPS: Nursing Notes: Mood Disturbance: Depression: Patient is awake and responding to her name, poor impulse control, argumentative, overly demanding, needy, constantly asking for narcotics, and very single PRN medication that she can get, redirected and setting limits during shift, stated that she is going to norm the facility and the doctors, depressed mood and angry affect, unable to formulate a viable plan for self care, unkempt appearance, denies SI/HI, continue to monitor for safety, continue with treatment plan.
[2022-07-03 19:52] VITALS: BP 158/71
[2022-07-03] MEDS: SENNOSIDES 1 TABLET PO SCH (20:34)
[2022-07-04] MEDS: TEMAZEPAM 7.5 MG CAPSULE PO PRN (00:26)
[2022-07-04] MEDS: OXYCODONE/APAP 5-325 MG TABLET PO PRN ×3 (00:27→17:18)
[2022-07-04] MEDS: DIAZEPAM 5 MG TABLET PO PRN ×2 (01:57→20:59)
[2022-07-04] MEDS: BISMUTH SUBSALICYLATE 262 MG/15 ML UDC PO PRN ×3 (01:57→20:59)
[2022-07-04] MEDS: ACETAMINOPHEN 325 MG TABLET PO PRN ×3 (03:57→21:00)
[2022-07-04] MEDS: diphenhydrAMINE 25 MG CAP PO PRN ×3 (03:57→17:18)
--- NOTE | 2022-07-04 03:58 | NUR ---
Patient continues to be reliant on her prn medications round the clock. Even after re-education on the hazards of becoming addicted to these medications, patient requests to have stronger pain meds. Pt stated "I'm not contemplating suicide but, I can't go on living with all this pain." "I can't take it anymore." "These doctors don't listen to me." "I've gotten better medications at the other hospitals I've been to." Patient continues to complain of pain in her stomach, head, neck, shoulders, arms, legs, knees, feet. Pt continues to state that "the medications are strong enough." Pt continues to be needy, attention-seeking, and med-seeking.
[2022-07-04] MEDS: LEVOTHYROXINE SODIUM 50 MCG TABLET PO SCH (06:23)
[2022-07-04] MEDS: PANTOPRAZOLE SODIUM 40 MG TABLET.DR PO SCH ×2 (06:23→17:18)
[2022-07-04] MEDS: SIMETHICONE 80 MG TAB.CHEW PO PRN ×2 (06:23→20:59)
[2022-07-04 07:07] LABS: ALBUMIN 3.4 g/dL (2.9-4.4); ALPHA-1-GLOBULIN 0.3 g/dL (0.0-0.4); ALPHA-2-GLOBULIN 0.8 g/dL (0.4-1.0); BETA GLOBULIN 1.3 g/dL (0.7-1.3); GAMMA GLOBULIN 1.2 g/dL (0.4-1.8); GLOBULIN, TOTAL 3.5 g/dL (2.2-3.9); M-SPIKE Not Observed g/dL (Not Observed)
[2022-07-04 08:11] VITALS: BP 154/56
[2022-07-04] MEDS: GABAPENTIN 100 MG CAPSULE PO SCH ×3 (08:49→17:18)
[2022-07-04] MEDS: ESCITALOPRAM OXALATE 10 MG TABLET PO SCH (08:49)
[2022-07-04] MEDS: DOCUSATE SODIUM 100 MG CAPSULE PO SCH ×2 (08:50→17:00)
[2022-07-04] MEDS: GLUCERNA SHAKE 237 ML CAN PO SCH ×2 (08:50→17:00)
[2022-07-04] MEDS: CYANOCOBALAMIN 1,000 MCG TABLET PO SCH (08:50)
[2022-07-04] MEDS: PSYLLIUM SEED PACKET PO SCH ×2 (08:50→17:00)
[2022-07-04] MEDS: AMLODIPINE 5 MG TABLET PO SCH (08:50)
[2022-07-04] MEDS: CARISOPRODOL 350 MG TABLET PO SCH ×2 (08:50→17:18)
[2022-07-04] MEDS: busPIRone 5 MG TABLET PO SCH ×3 (08:50→17:18)
[2022-07-04] MEDS: MIRALAX 17 GM POWD.PACK PO SCH ×2 (08:51→17:00)
[2022-07-04] MEDS: CLOTRIMAZOLE 1% CREAM 30 GM TUBE TP SCH ×2 (08:51→21:25)
[2022-07-04] MEDS: REMEDY ESSENTIAL ZINC PASTE 113 GM TOP PRN ×2 (09:25→17:20)
--- NOTE | 2022-07-04 13:54 | NUR ---
GPS: Nursing Notes: Mood Disturbance: Depression: Patient is awake and responding to her name, poor impulse control, argumentative, constantly complaining about the doctors, informed of somatic complaints to Dr. Amaya and Geovanna Solis NP, no further orders were given, depressed mood and anxious affect, overly demanding, needy, disruptive at times by shouting, redirected during shift, setting limits, unable to formulate a viable plan for self care, continue to monitor for safety, continue with treatment plan.
[2022-07-04 15:55] VITALS: BP 118/82
[2022-07-04 19:37] VITALS: BP 167/71
[2022-07-04] MEDS: DULOXETINE 30 MG CAPSULE.DR PO SCH (20:59)
[2022-07-04] MEDS ORDERED: QUETIAPINE FUMARATE 25 MG TABLET PO SCH (21:00)
[2022-07-04] MEDS: SENNOSIDES 1 TABLET PO SCH (21:00)
--- NOTE | 2022-07-04 21:00 | NUR ---
Patient continues to be needy, drug and attention seeking.
[2022-07-05] MEDS: TEMAZEPAM 7.5 MG CAPSULE PO PRN ×2 (01:30→23:46)
[2022-07-05] MEDS: OXYCODONE/APAP 5-325 MG TABLET PO PRN ×3 (01:31→17:04)
[2022-07-05] MEDS: LEVOTHYROXINE SODIUM 50 MCG TABLET PO SCH (06:33)
[2022-07-05] MEDS: diphenhydrAMINE 25 MG CAP PO PRN ×3 (06:33→21:22)
[2022-07-05] MEDS: PANTOPRAZOLE SODIUM 40 MG TABLET.DR PO SCH ×2 (06:33→17:02)
[2022-07-05] MEDS: ACETAMINOPHEN 325 MG TABLET PO PRN ×3 (06:33→21:22)
[2022-07-05 08:07] VITALS: BP 112/52
[2022-07-05] MEDS: MIRALAX 17 GM POWD.PACK PO SCH ×2 (09:00→17:00)
[2022-07-05] MEDS: GLUCERNA SHAKE 237 ML CAN PO SCH ×2 (09:00→17:00)
[2022-07-05] MEDS: PSYLLIUM SEED PACKET PO SCH ×2 (09:00→17:00)
[2022-07-05] MEDS: DOCUSATE SODIUM 100 MG CAPSULE PO SCH ×2 (09:00→17:00)
[2022-07-05] MEDS: AMLODIPINE 5 MG TABLET PO SCH (09:09)
[2022-07-05] MEDS: ESCITALOPRAM OXALATE 10 MG TABLET PO SCH (09:09)
[2022-07-05] MEDS: CYANOCOBALAMIN 1,000 MCG TABLET PO SCH (09:09)
[2022-07-05] MEDS: busPIRone 5 MG TABLET PO SCH ×3 (09:09→17:03)
[2022-07-05] MEDS: CARISOPRODOL 350 MG TABLET PO SCH ×2 (09:09→17:02)
[2022-07-05] MEDS: GABAPENTIN 100 MG CAPSULE PO SCH ×3 (09:09→17:02)
[2022-07-05] MEDS: CLOTRIMAZOLE 1% CREAM 30 GM TUBE TP SCH ×2 (09:10→21:24)
[2022-07-05] MEDS: BISMUTH SUBSALICYLATE 262 MG/15 ML UDC PO PRN (11:22)
--- NOTE | 2022-07-05 11:33 | NUR ---
SW Family Contact: Pts only nascar pit crew person is her , who is also a resident at [facility] confirmed by the facility. The facility is aware of pt's current treatment update.
[2022-07-05] MEDS: MAG HYDROX/AL HYDROX/SIMETH 30 ML LIQUID UDC PO PRN ×2 (12:44→23:37)
[2022-07-05 16:00] VITALS: BP 133/50
--- NOTE | 2022-07-05 17:19 | NUR ---
GPS: Mood Disturbance: Depression: Patient is awake and responding to her name, poor impulse control, argumentative, gets easily irritable when redirected, depressed mood and anxious affect, needs assistance with nursing care, threatening to norm the facility and the doctors, loud and pressured speech at times, unable to formulate a viable plan for self care, needy, overly demanding, redirected during shift, continue to monitor for safety, continue with treatment plan.
[2022-07-05 20:11] VITALS: BP 168/64
[2022-07-05] MEDS: SENNOSIDES 1 TABLET PO SCH (21:00)
[2022-07-05] MEDS ORDERED: QUETIAPINE FUMARATE 25 MG TABLET PO SCH (21:00)
[2022-07-05] MEDS: DULOXETINE 30 MG CAPSULE.DR PO SCH (21:22)
[2022-07-05] MEDS: LORAZEPAM 1 MG TABLET PO PRN (21:22)
[2022-07-05] MEDS: SIMETHICONE 80 MG TAB.CHEW PO PRN (23:36)
[2022-07-06] MEDS: LORAZEPAM 1 MG TABLET PO PRN ×2 (06:47→13:44)
[2022-07-06] MEDS: LEVOTHYROXINE SODIUM 50 MCG TABLET PO SCH (06:47)
[2022-07-06] MEDS: ACETAMINOPHEN 325 MG TABLET PO PRN ×2 (06:47→17:21)
[2022-07-06] MEDS: PANTOPRAZOLE SODIUM 40 MG TABLET.DR PO SCH ×2 (06:47→17:21)
[2022-07-06] MEDS: MAG HYDROX/AL HYDROX/SIMETH 30 ML LIQUID UDC PO PRN ×4 (06:48→22:15)
[2022-07-06 07:30] VITALS: BP 124/65
[2022-07-06] MEDS: PSYLLIUM SEED PACKET PO SCH ×2 (09:00→17:00)
[2022-07-06] MEDS: CYANOCOBALAMIN 1,000 MCG TABLET PO SCH (09:00)
[2022-07-06] MEDS: CLOTRIMAZOLE 1% CREAM 30 GM TUBE TP SCH ×2 (09:00→21:24)
[2022-07-06] MEDS: MIRALAX 17 GM POWD.PACK PO SCH ×2 (09:25→17:21)
[2022-07-06] MEDS: CARISOPRODOL 350 MG TABLET PO SCH ×2 (09:26→17:21)
[2022-07-06] MEDS: AMLODIPINE 5 MG TABLET PO SCH (09:26)
[2022-07-06] MEDS: busPIRone 5 MG TABLET PO SCH ×3 (09:26→17:21)
[2022-07-06] MEDS: DOCUSATE SODIUM 100 MG CAPSULE PO SCH ×2 (09:27→17:00)
[2022-07-06] MEDS: ESCITALOPRAM OXALATE 10 MG TABLET PO SCH (09:27)
[2022-07-06] MEDS: GLUCERNA SHAKE 237 ML CAN PO SCH ×2 (09:28→17:00)
[2022-07-06] MEDS: GABAPENTIN 100 MG CAPSULE PO SCH ×3 (09:35→17:21)
[2022-07-06] MEDS: OXYCODONE/APAP 5-325 MG TABLET PO PRN ×2 (12:33→21:25)
[2022-07-06 16:00] VITALS: BP 162/51
[2022-07-06] MEDS: SIMETHICONE 80 MG TAB.CHEW PO PRN (17:21)
[2022-07-06 19:38] VITALS: BP 143/51
[2022-07-06] MEDS: SENNOSIDES 1 TABLET PO SCH (21:00)
[2022-07-06] MEDS ORDERED: QUETIAPINE FUMARATE 25 MG TABLET PO SCH (21:00)
[2022-07-06] MEDS: DULOXETINE 30 MG CAPSULE.DR PO SCH (21:24)
[2022-07-06] MEDS: diphenhydrAMINE 25 MG CAP PO PRN (22:18)
[2022-07-06] MEDS: TEMAZEPAM 7.5 MG CAPSULE PO PRN (23:35)
[2022-07-07] MEDS: LORAZEPAM 1 MG TABLET PO PRN ×2 (01:57→06:05)
[2022-07-07] MEDS: ACETAMINOPHEN 325 MG TABLET PO PRN (02:00)
[2022-07-07] MEDS: OXYCODONE/APAP 5-325 MG TABLET PO PRN (05:38)
[2022-07-07] MEDS: REMEDY ESSENTIAL ZINC PASTE 113 GM TOP PRN (06:00)
[2022-07-07] MEDS: LEVOTHYROXINE SODIUM 50 MCG TABLET PO SCH (06:02)
[2022-07-07] MEDS: PANTOPRAZOLE SODIUM 40 MG TABLET.DR PO SCH (06:02)
[2022-07-07] MEDS: DOCUSATE SODIUM 100 MG CAPSULE PO SCH (08:53)
[2022-07-07] MEDS: ESCITALOPRAM OXALATE 10 MG TABLET PO SCH (08:53)
[2022-07-07] MEDS: CARISOPRODOL 350 MG TABLET PO SCH (08:53)
[2022-07-07] MEDS: CYANOCOBALAMIN 1,000 MCG TABLET PO SCH (08:54)
[2022-07-07] MEDS: GABAPENTIN 100 MG CAPSULE PO SCH (08:54)
[2022-07-07] MEDS: busPIRone 5 MG TABLET PO SCH (08:54)
[2022-07-07] MEDS: AMLODIPINE 5 MG TABLET PO SCH ×2 (08:54→09:00)
[2022-07-07] MEDS: MIRALAX 17 GM POWD.PACK PO SCH (08:54)
[2022-07-07] MEDS: PSYLLIUM SEED PACKET PO SCH (08:59)
[2022-07-07] MEDS: CLOTRIMAZOLE 1% CREAM 30 GM TUBE TP SCH (08:59)
[2022-07-07 09:00] VITALS: BP 112/49
[2022-07-07] MEDS: GLUCERNA SHAKE 237 ML CAN PO SCH (09:23)
--- NOTE | 2022-07-07 09:40 | NUR ---
CHARLENE Discharge Note: Pt will be discharged to [facility] [address] [place] [address] ([phone]) via Ambulance transportation at 11AM. CHARLENE spoke with Moshe hall at the facility who states they are ready to accept the patient today. Pt is aware and agreeable with discharge plan. Pts only medium cycle salesperson is her , who is also a resident at [facility] confirmed by the facility. Pt is alert and oriented x4, is unable to plan for self-care at this time. However, pt is willing to accept care at [facility]. Pt denies any suicidal or homicidal ideation. Pt will follow-up at the facility with Psychiatrist, Dr. Gasca ([phone]) and Exhibit Technician, Dr. Aguirre. Pt presents with calm mood and congruent affect. PHARMACY: [facility] ([phone]) [address] [place] [id number].
--- NOTE | 2022-07-07 09:53 | NUR ---
CHARLENE Final Discharge Note: Pt will be discharged to [facility] [address] [place] [address] ([phone]) via Ambulance transportation at 11AM. CHARLENE spoke with Moshe hall at the facility who states they are ready to accept the patient today. Pt is aware and agreeable with discharge plan. Pts only relief salesperson is her , who is also a resident at [facility] confirmed by the facility. Pt is alert and oriented x4, is unable to plan for self-care at this time. However, pt is willing to accept care at [facility]. Pt denies any suicidal or homicidal ideation. Pt will follow-up at the facility with Psychiatrist, Dr. Martin and Inseam Trimming Machine Operator, Dr. Aguirre. Pt presents with calm mood and congruent affect. PHARMACY: [facility] ([phone]) [address] [place] [id number].
[2022-07-07] MEDS: MAG HYDROX/AL HYDROX/SIMETH 30 ML LIQUID UDC PO PRN (11:06)
--- NOTE | 2022-07-07 11:43 | NUR ---
Received orders to discharged to [facility] [address] [place] [address] ([phone]) via Ambulance transportation at 11AM. SW spoke with Moshe hall at the facility who states they are ready to accept the patient today. Pt is aware and agreeable with discharge plan. Patient is agreeable with discharge plans, and signed all discharge documentation. Patient denies SI/HI AH/VH, SOB, pain. All belongings were returned to patient. Patient left the unit at 11:40 am. Emotional support provided. Fall and safety precautions implemented.
--- NOTE | 2022-07-07 13:35 | NUR ---
SW Discharge Update: Per CJ in admissions at [facility], pt does not want to go into the facility post discharge from [facility]. Per EMT's, pt does not want to get off the gurney. Despite pt's continuous agreement to return to [facility] and reside with her who is also a pt there, she refused to go inside. This SW faxed patient's referral packet including: History and Physical, Consultation, Progress Notes, Medication List and Labs to the following facilities for review and possible [facility] placement: [facility] [address] ([phone]) as it is close her per request and pt will continue to follow with her current psychiatrist, Dr. Martin. Per Sheron hall, they will be reviewing the clinicals and update this health underwriter.
== END 2022-07-07 11:40 | DRG 881 ==
LOC: ER 14:51 → GPS 20:30
PROVIDERS: ADMIT Psychiatry & Neurology Psychiatry; ATTEND Nurse Practitioner Acute Care
DX: F43.21 Adjustment disorder with depressed mood (principal); N17.0 Acute kidney failure with tubular necrosis; Z68.41 Body mass index [BMI] 40.0-44.9, adult; F33.9 Major depressive disorder, recurrent, unspecified; G89.4 Chronic pain syndrome; E03.9 Hypothyroidism, unspecified; E78.5 Hyperlipidemia, unspecified; I10 Essential (primary) hypertension; K21.9 Gastro-esophageal reflux disease without esophagitis; Z20.822 Contact with and (suspected) exposure to COVID-19; Z73.6 Limitation of activities due to disability; F41.9 Anxiety disorder, unspecified; G20 Parkinson's disease; G62.9 Polyneuropathy, unspecified; M51.36 Other intervertebral disc degeneration, lumbar region; Z91.81 History of falling; Z79.899 Other long term (current) drug therapy; F20.9 Schizophrenia, unspecified; E66.9 Obesity, unspecified
CPT/HCPCS: 36415; 70450; 71045; 72125; 83605; 83690; 83735; 83970; 84100; 84155; 84165; 84484; 85025; 93005; A4663; C1758; J1170; J2060; J2358; J2405; J3490; Q0162; Q0163